=== PATIENT | male | born 1950 | race Caucasian/White ===

== ENCOUNTER → 2019-11-06 | Outpatient (CLI) | payer MEDICARE, BC ==
[~2019-11-06] MED LIST: ASPIRIN EC81 MG PO; ATORVASTATIN CA20 MG PO; BACLOFEN10 MG PO; CALCIUM 600 +1 EAC2; CITALOPRAM HBR20 MG PO; IOPAMIDOL 370 MG/ML 200 ML INFUS..BTL INJ ONE; MELATONIN3 MG PO; PANTOPRAZOLE SO40 MG PO; PLAVIX75 MG PO; SENNA LAXATIVE1 EACH; SODIUM CHLORIDE 0.9% 100 ML ONE; ULTRAM 50MG50 MG PO; VITAMIN D250000 UNIT
[2019-11-06 14:02] LABS: BLOOD UREA NITROGEN 24 mg/dL (7-26); BUN/CREATININE RATIO 23 (6-25); CREATININE, SERUM 1.05 mg/dL (0.72-1.25); EST GLOMERULAR FILTRATION RATE > 60 ML/MIN (60-)
--- NOTE | 2019-11-07 08:48 | Diagnostic Imaging Report ---
Abdomen and Pelvis CTA WITH IV CONTRAST. INDICATION: Abdominal aortic aneurysm COMPARISON: CTA abdomen pelvis of 06/20/2018 TECHNIQUE: Abdomen and pelvis were scanned utilizing a multidetector helical scanner from the lung base to the pubic symphysis without administration of IV contrast. Coronal and sagittal reformations were obtained. 3D post-processing of the images was performed, and the post-processed images were used in interpretation. CTA protocol was performed. IV CONTRAST: 100mL of Isovue 370 ORAL CONTRAST: Water RADIATION DOSE: Total DLP: 696 mGy*cm FINDINGS: VESSELS: There are moderate calcified and noncalcified atherosclerotic plaques in the aorta and its major branches. There is no evidence of a flap within the aorta to suggest a dissection. Again seen is the infrarenal abdominal aortic aneurysm which measures up to 4.2 x 4.1 cm at its widest point, essentially unchanged from the prior CTA of 06/20/2018. There is now slightly less eccentric mural thrombus compared to the prior study. 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 The external iliac arteries and common femoral arteries demonstrate mild atherosclerotic calcifications but are widely patent. The celiac artery, superior mesenteric artery, and inferior mesenteric artery are patent. There is a single right renal artery and a single left renal artery, both of which are patent. NON-VASCULAR: LOWER THORAX: 5 mm left lower lobe pulmonary nodule is stable dating back to 10/17/2016. No focal lung base consolidation. 7 mm unchanged left lower lobe calcified granulomas. HEPATOBILIARY: No focal liver lesion. No biliary ductal dilation. Unremarkable gallbladder. SPLEEN: Numerous subcentimeter calcified granulomas throughout the spleen. PANCREAS: No focal masses or ductal dilatation. ADRENALS: No adrenal nodules. KIDNEYS/URETERS: No hydronephrosis, stones, or solid mass lesions. PELVIC ORGANS/BLADDER: Radiopaque fiducials in the prostate. PERITONEUM / RETROPERITONEUM: No free air or fluid. LYMPH NODES: No lymphadenopathy. GI TRACT: Diverticulosis without CT evidence of diverticulitis. No abnormal bowel thickening. No bowel obstruction. Normal appendix. BONES AND SOFT TISSUES: No acute osseous injury. No suspicious lytic or blastic lesions. Moderate degenerative changes of the visualized spine. Grade 1 retrolisthesis at L2-3. IMPRESSION: Infrarenal abdominal aortic aneurysm measures 4.2 x 4.1 cm, stable dating back to 10/17/2016. Signed by: Loy Kenyon MD on 11/07/2019 8:45 AM
== END ==
LOC: CT 12:59
PROVIDERS: ATTEND Internal Medicine Interventional Cardiology
DX: I71.4 Abdominal aortic aneurysm, without rupture (principal)
CPT/HCPCS: 36415; 74174; 82565; 84520; J7050; Q9967

== ENCOUNTER → 2020-03-03 | Day surgery (SDC) | payer MEDICARE, BC ==
[2020-02-27 11:21] LABS: BASOPHILS % 0.7 % (0.0-1.0); EOSINOPHILS # (AUTO) 0.3 (0.0-0.4); EOSINOPHILS % 5.1 % (0.0-6.0); HEMATOCRIT 37.1 % (38.2-49.6); HEMOGLOBIN 12.1 g/dL (14.0-18.0); LYMPHOCYTES # (AUTO) 1.3 (1.0-3.2); LYMPHOCYTES % 22.3 % (18.0-39.1); MEAN CORPUSCULAR HEMOGLOBIN 30.5 pg (28-32); MEAN CORPUSCULAR HGB CONC 32.6 g/dL (31-35); MEAN CORPUSCULAR VOLUME 93.5 fL (81-99); MONOCYTES # (AUTO) 0.9 (0.2-0.8); MONOCYTES % 15.3 % (4.4-11.3); NEUTROPHILS # (AUTO) 3.2 (2.1-6.9); NEUTROPHILS % 56.4 % (38.7-80.0); PLATELET COUNT 270 x10e3/uL (140-360); RED BLOOD COUNT 3.97 x10e6/uL (4.3-5.7); RED CELL DISTRIBUTION WIDTH 13.4 % (11.7-14.4)
[2020-02-27 11:38] LABS: ALANINE AMINOTRANSFERASE 15 IU/L (0-55); ALBUMIN 4.1 g/dL (3.5-5.0); ALBUMIN/GLOBULIN RATIO 1.4 (0.8-2.0); ALKALINE PHOSPHATASE 76 IU/L (40-150); ANION GAP 11.7 mmol/L (8-16); BLOOD UREA NITROGEN 18 mg/dL (7-26); BUN/CREATININE RATIO 18 (6-25); CALCIUM 9.3 mg/dL (8.4-10.2); CARBON DIOXIDE 26 mmol/L (22-29); CHLORIDE 107 mmol/L (98-107); CREATININE, SERUM 1.02 mg/dL (0.72-1.25); EST GLOMERULAR FILTRATION RATE > 60 ML/MIN (60-); GLUCOSE 95 mg/dL (74-118); POTASSIUM 4.7 mmol/L (3.5-5.1); SODIUM 140 mmol/L (136-145)
--- NOTE | 2020-03-02 12:42 | NUR ---
attempted to contact pt for pre-admit interview @ [phone]. no answer and mailbox was reported as full.
[2020-03-03] VITALS (10 sets, daily range): BP systolic 126–151; BP diastolic 58–99
[~2020-03-03] MED LIST changes: +ALPRAZOLAM 0.5 MG TAB ONE; +CALCIUM PO; +DIPHENHYDRAMINE HCL 25 MG CAP ONE; +FENTANYL CITRATE/PF 100MCG/2 ML INJ ONE; +HEPARIN SOD/SOD CHLORIDE 2,000 ML ONE; +IOPAMIDOL 300MG/ML 100 ML INFUS..BTL IV ONE; -IOPAMIDOL 370 MG/ML 200 ML INFUS..BTL INJ ONE; +LIDOCAINE HCL 2% LOCAL 20 ML VIAL ONE; +METOPROLOL SUCC25 MG PO; +MIDAZOLAM HCL 2 MG/2 ML VIAL ONE; -SENNA LAXATIVE1 EACH; +SENNA LAXATIVE1 EACH PO; -SODIUM CHLORIDE 0.9% 100 ML ONE; +SODIUM CHLORIDE 0.9% 1000ML 1,000 ML ONE; +TIZANIDINE HCL4 MG PO; +TYLENOL ARTHRITIS PO; +WARFARIN SODIU2.5 MG PO; +vitamin d3 PO
--- NOTE | 2020-03-03 15:30 | NUR ---
bedside report received from Leo Montalvo RN. Alert oriented and appropriate, PERRLA, respirations even and unlabored to room air. Pulses x4 extremities equal and strong. Left groin dressing presents clean and dry w/o s/s of hematoma. Skin warm and dry integrity appears intact. IV 20g to left forearm presents healthy w/o s/s of infiltration or complaint. Abdomen soft and supple. pt offered toileting, denies need to urinate or defecate. Personal affects with patient. Family at bedside available. Pt understanding of POC. Bedside telemetry/monitoring active. Currently w/o complaint need. Discomfort to lower back being managed with right leg bending. Call light within reach, bed low and locked, side rails up x2. pt using provided/ personal mask for COVID-19 mitigation. -cgf
--- NOTE | 2020-03-03 16:00 | NUR ---
left groin dressing remains CDI. No gross abnormalities with inguinal assess. pt sat up 30o for back relief and nutritional meal provided. pt w/ + affect and VS remain WNL trend for pt. remains at bedside. no gross changes in overall assess. DC teaching started.
--- NOTE | 2020-03-03 17:05 | NUR ---
Pt meets discharge criteria. VS wnl, alert and oriented. Pt and Family Understands discharge instruction. Overall general assess w/o gross outliers. Skin warm, dry, and intact. left femoral dressing soft w/o s/s of hematoma. + neurovascular function of left leg present. IV removed and appears distal tip is intact. Pt maintains mask on for COVID 19 precautions being taken by wheel chair to awaiting car. Transfers w/o gross distress with discharge paperwork in hand.-cgf
--- NOTE | 2020-03-04 07:09 | Operative Report ---
DATE OF PROCEDURE: 03/03/2020 SURGEON: Kimani Andrea MD INDICATIONS: Peripheral arterial disease, claudication in the right lower extremity. PROCEDURES PERFORMED: 1. Abdominal aorta catheter placement with abdominal aortogram. 2. Third-order catheter placement from the left femoral artery to right superficial femoral artery. 3. Bilateral lower extremity angiograms. 4. Deployment of left groin Perclose closure device. 5. Conscious sedation, 35 minutes. COMPLICATIONS: None. RECOMMENDATIONS: Staged intervention from the right pedal artery. DESCRIPTION OF PROCEDURE: Access was obtained in the left femoral artery. A 6-[place] sheath was placed. Abdominal aortogram demonstrated large abdominal aortic aneurysm. The catheter was then advanced to the right femoral artery, in-stent restenosis in the mid right femoral artery had 50%, distal to the stent 90%, three-vessel runoff. Left femoral artery 50% stenosis. Left groin repaired using Perclose. The patient referred for tibial access intervention due to presence of large abdominal aortic. DICTATION ENDS HERE Kimani Andrea MD [facility] /[id number]
== END | disposition home or self-care (01) ==
LOC: CATH LAB 09:03
PROVIDERS: ATTEND Internal Medicine Interventional Cardiology
DX: I70.211 Atherosclerosis of native arteries of extremities with intermittent claudication, right leg (principal); Z95.820 Peripheral vascular angioplasty status with implants and grafts; I25.10 Atherosclerotic heart disease of native coronary artery without angina pectoris; I48.0 Paroxysmal atrial fibrillation; I51.9 Heart disease, unspecified; I63.9 Cerebral infarction, unspecified; I71.4 Abdominal aortic aneurysm, without rupture; Z01.812 Encounter for preprocedural laboratory examination; Z11.59 Encounter for screening for other viral diseases; Z79.82 Long term (current) use of aspirin
CPT/HCPCS: 36247; 36415; 75625; 75710; 80053; 85025; J2001; J2250; J3010; J7030; Q9967; U0002; 75716; 99152; C1760; C1769

== ENCOUNTER → 2020-03-26 | Day surgery (SDC) | payer MEDICARE, BC ==
[2020-03-23 11:28] LABS: BASOPHILS % 0.7 % (0.0-1.0); EOSINOPHILS # (AUTO) 0.3 (0.0-0.4); EOSINOPHILS % 4.9 % (0.0-6.0); HEMATOCRIT 38.2 % (38.2-49.6); HEMOGLOBIN 12.6 g/dL (14.0-18.0); LYMPHOCYTES # (AUTO) 1.3 (1.0-3.2); LYMPHOCYTES % 23.3 % (18.0-39.1); MEAN CORPUSCULAR HEMOGLOBIN 30.7 pg (28-32); MEAN CORPUSCULAR VOLUME 92.9 fL (81-99); MONOCYTES # (AUTO) 0.8 (0.2-0.8); MONOCYTES % 13.2 % (4.4-11.3); NEUTROPHILS # (AUTO) 3.3 (2.1-6.9); NEUTROPHILS % 57.5 % (38.7-80.0); PLATELET COUNT 306 x10e3/uL (140-360); RED BLOOD COUNT 4.11 x10e6/uL (4.3-5.7); RED CELL DISTRIBUTION WIDTH 13.2 % (11.7-14.4)
[2020-03-23 11:50] LABS: ALANINE AMINOTRANSFERASE 14 IU/L (0-55); ALBUMIN/GLOBULIN RATIO 1.3 (0.8-2.0); ALKALINE PHOSPHATASE 81 IU/L (40-150); ANION GAP 11.2 mmol/L (8-16); BLOOD UREA NITROGEN 12 mg/dL (7-26); BUN/CREATININE RATIO 13 (6-25); CALCIUM 9.6 mg/dL (8.4-10.2); CARBON DIOXIDE 26 mmol/L (22-29); CHLORIDE 109 mmol/L (98-107); CREATININE, SERUM 0.96 mg/dL (0.72-1.25); EST GLOMERULAR FILTRATION RATE > 60 ML/MIN (60-); GLUCOSE 104 mg/dL (74-118); POTASSIUM 4.2 mmol/L (3.5-5.1); SODIUM 142 mmol/L (136-145)
[2020-03-26] VITALS (7 sets, daily range): BP systolic 134–156; BP diastolic 59–134
[~2020-03-26] MED LIST changes: +ASPIRIN 325 MG TAB ONE; +BIVALRIUDIN 250 MG/VIAL VIAL IV ONE; +PRASUGREL 10 MG TAB ONE; +SODIUM CHLORIDE 0.9% 50ML 0 ML ONE
== END | disposition home or self-care (01) ==
LOC: CATH LAB 10:10
PROVIDERS: ATTEND Internal Medicine Interventional Cardiology
DX: I70.211 Atherosclerosis of native arteries of extremities with intermittent claudication, right leg (principal); I25.10 Atherosclerotic heart disease of native coronary artery without angina pectoris; I71.4 Abdominal aortic aneurysm, without rupture; I50.20 Unspecified systolic (congestive) heart failure; Z72.0 Tobacco use; Z01.812 Encounter for preprocedural laboratory examination; Z20.828 Contact with and (suspected) exposure to other viral communicable diseases; Z79.82 Long term (current) use of aspirin; Z79.01 Long term (current) use of anticoagulants; Z86.73 Personal history of transient ischemic attack (TIA), and cerebral infarction without residual deficits; Z95.820 Peripheral vascular angioplasty status with implants and grafts
CPT/HCPCS: 36415; 37225; 75710; 76937; 80053; 85025; C1714; C1769 ×2; J2001; J2250; J3010; J7030; Q9967; U0002; 99152; 99153; J0583

== ENCOUNTER → 2022-06-27 | Outpatient (CLI) | payer MEDICARE, BC ==
[~2022-06-27] MED LIST changes: -ALPRAZOLAM 0.5 MG TAB ONE; -ASPIRIN 325 MG TAB ONE; -BIVALRIUDIN 250 MG/VIAL VIAL IV ONE; -DIPHENHYDRAMINE HCL 25 MG CAP ONE; -FENTANYL CITRATE/PF 100MCG/2 ML INJ ONE; -HEPARIN SOD/SOD CHLORIDE 2,000 ML ONE; -IOPAMIDOL 300MG/ML 100 ML INFUS..BTL IV ONE; -LIDOCAINE HCL 2% LOCAL 20 ML VIAL ONE; -MIDAZOLAM HCL 2 MG/2 ML VIAL ONE; -PRASUGREL 10 MG TAB ONE; -SODIUM CHLORIDE 0.9% 1000ML 1,000 ML ONE; -SODIUM CHLORIDE 0.9% 50ML 0 ML ONE
== END ==
LOC: CT 15:47
PROVIDERS: ATTEND Family Medicine
DX: J18.9 Pneumonia, unspecified organism (principal); R91.1 Solitary pulmonary nodule
CPT/HCPCS: 71250

== ENCOUNTER 2023-02-28 12:59 | Observation (INO) | payer MEDICARE, BC ==
[2023-02-24 11:01] LABS: BASOPHILS % 0.8 % (0.0-1.0); EOSINOPHILS # (AUTO) 0.2 (0.0-0.4); EOSINOPHILS % 4.4 % (0.0-6.0); HEMATOCRIT 32.8 % (38.2-49.6); HEMOGLOBIN 10.8 g/dL (14.0-18.0); LYMPHOCYTES # (AUTO) 1.2 (1.0-3.2); LYMPHOCYTES % 25.9 % (18.0-39.1); MEAN CORPUSCULAR HEMOGLOBIN 30.6 pg (28-32); MEAN CORPUSCULAR HGB CONC 32.9 g/dL (31-35); MEAN CORPUSCULAR VOLUME 92.9 fL (81-99); MONOCYTES # (AUTO) 0.7 (0.2-0.8); MONOCYTES % 14.3 % (4.4-11.3); NEUTROPHILS # (AUTO) 2.6 (2.1-6.9); NEUTROPHILS % 54.4 % (38.7-80.0); PLATELET COUNT 296 x10e3/uL (140-360); RED BLOOD COUNT 3.53 x10e6/uL (4.3-5.7); RED CELL DISTRIBUTION WIDTH 13.5 % (11.7-14.4); WHITE BLOOD COUNT 4.75 x10e3/uL (4.8-10.8)
[2023-02-24 11:25] LABS: ALBUMIN 3.7 g/dL (3.5-5.0); ALBUMIN/GLOBULIN RATIO 1.2 (0.8-2.0); ANION GAP 13.3 mmol/L (8-16); CALCIUM 9.3 mg/dL (8.4-10.2); CHOL/HDL RATIO 2.7 (3.9-4.7); CREATININE, SERUM 1.05 mg/dL (0.72-1.25); POTASSIUM 4.3 mmol/L (3.5-5.1)
[2023-02-28] VITALS (19 sets, daily range): BP systolic 121–154; BP diastolic 52–84; PULSE 44–67; RESP 11–20; TEMP 97.8–97.9; O2SAT 93–100
[~2023-02-28] VITALS: Ht 182.9 cm; Wt 72.6 kg
[~2023-02-28 12:59] MED LIST changes: +CYCLOBENZAPRINE5 MG PO
[2023-02-28] MEDS ORDERED: ALPRAZOLAM 0.5 MG TAB ONE (13:33)
[2023-02-28] MEDS ORDERED: DIPHENHYDRAMINE HCL 25 MG CAP ONE (13:33)
[2023-02-28] MEDS ORDERED: NITROGLYCERIN/D5W 200 MCG/ML 250 ML ONE (14:58)
[2023-02-28] MEDS ORDERED: LIDOCAINE HCL 2% LOCAL 20 ML VIAL ONE (14:58)
[2023-02-28] MEDS ORDERED: SODIUM CHLORIDE 0.9% 1000ML 1,000 ML ONE (14:58)
[2023-02-28] MEDS ORDERED: HEPARIN SOD/SOD CHLORIDE 2,000 ML ONE (14:58)
[2023-02-28] MEDS ORDERED: HEPARIN SOD (PORCINE) 1000 UNIT/ML 30ML ONE (14:58)
[2023-02-28] MEDS ORDERED: IOPAMIDOL 370 MG/ML 100 ML INFUS..BTL INJ ONE (14:58)
[2023-02-28] MEDS ORDERED: VERAPAMIL HCL 2.5 MG/ML 2 ML VIAL ONE (14:58)
[2023-02-28] MEDS ORDERED: FENTANYL CITRATE/PF 100MCG/2 ML INJ ONE (15:11)
[2023-02-28] MEDS ORDERED: MIDAZOLAM HCL 2 MG/2 ML VIAL ONE (15:11)
[2023-02-28] MEDS ORDERED: BIVALRIUDIN 250 MG/VIAL VIAL IV ONE (15:29)
[2023-02-28] MEDS ORDERED: PRASUGREL 10 MG TAB ONE (15:33)
[2023-02-28] MEDS ORDERED: Morphine 2mg Syringe 2 MG/ML SYR IV PRN (15:45)
[2023-02-28] MEDS ORDERED: SENNOSIDES 8.6 MG TAB PO PRN (15:45)
[2023-02-28] MEDS ORDERED: ONDANSETRON HCL INJ 2MG/ML 2ML 2 MG/ML VIAL IV PRN (15:45)
[2023-02-28] MEDS ORDERED: MELATONIN 5 MG TABLET PO SCH (21:00)
[2023-02-28] MEDS ORDERED: ATORVASTATIN 40 MG TAB PO SCH (21:00)
[2023-02-28] MEDS: SODIUM CHLORIDE 0.9% 1000ML 1,000 ML IV SCH (23:01)
[2023-03-01] VITALS: BP 116/72; PULSE 57; RESP 19; TEMP 97.7; O2SAT 93
[2023-03-01] MEDS: SODIUM CHLORIDE 0.9% 1000ML 1,000 ML IV SCH (01:45)
[2023-03-01] MEDS: HYDROCODONE/APAP 5MG-325MG TAB PO PRN ×2 (03:22→09:01)
[2023-03-01 04:00] VITALS: BP 131/56; PULSE 77; RESP 20; TEMP 97.9; O2SAT 98
[2023-03-01 08:00] VITALS: BP 129/78; PULSE 59; RESP 21; TEMP 97.7; O2SAT 98
[2023-03-01] MEDS ORDERED: ONDANSETRON HCL 4 MG ORAL DISINTEGRATING TAB PO PRN (08:30)
[2023-03-01 09:00] VITALS: BP 129/78; PULSE 59; RESP 21; TEMP 97.7; O2SAT 98
[2023-03-01] MEDS ORDERED: METOPROLOL SUCCINATE 50 MG TAB XL PO SCH (09:00)
[2023-03-01] MEDS ORDERED: CLOPIDOGREL BISULFATE 75 MG TAB PO SCH (09:00)
[2023-03-01] MEDS ORDERED: CITALOPRAM HYDROBROMIDE 20 MG TAB PO SCH (09:00)
[2023-03-01] MEDS ORDERED: PNEUMOCOCCAL VACCINE POLYVALENT 23 MCG/0.5 ML VIAL IM SCH (12:00)
[2023-03-01] MEDS ORDERED: INFLUENZA VIRUS VAC SPLIT INJ 0.5 ML SYR IM SCH (12:00)
[2023-03-01] MEDS ORDERED: WARFARIN SOD 5 MG TAB PO SCH (17:00)
== END 2023-03-01 10:41 | disposition home or self-care (01) ==
LOC: CATH LAB 12:59 → MED/SURG 15:40 → INTOOBSV 15:40
PROVIDERS: ADMIT Internal Medicine Interventional Cardiology; ATTEND Internal Medicine Interventional Cardiology
DX: I25.118 Atherosclerotic heart disease of native coronary artery with other forms of angina pectoris (principal); I48.0 Paroxysmal atrial fibrillation; Z79.01 Long term (current) use of anticoagulants; I11.0 Hypertensive heart disease with heart failure; I50.22 Chronic systolic (congestive) heart failure; I73.9 Peripheral vascular disease, unspecified; I71.40 Abdominal aortic aneurysm, without rupture, unspecified; Z86.73 Personal history of transient ischemic attack (TIA), and cerebral infarction without residual deficits; Z79.899 Other long term (current) drug therapy; Z01.812 Encounter for preprocedural laboratory examination
CPT/HCPCS: 93458; C9600; 36415; 80053; 80061; 85025; 92928; 99152; 99153; C1887; C1894; G0378; J0583; J1644; J2001; J2250; J7030; Q9967

== ENCOUNTER → 2024-02-09 | Outpatient (REF) | payer MEDICARE, BC | LOC: RAD 13:06 | PROVIDERS: ATTEND Internal Medicine Medical Oncology | DX: R91.1 Solitary pulmonary nodule (principal) | CPT/HCPCS: 71046 ==

== ENCOUNTER 2024-06-17 02:49 | Emergency (ER) | payer MEDICARE, BC ==
[~2024-06-17] VITALS: Ht 365.8 cm; Wt 72.6 kg
[2024-06-17 02:54] VITALS: TEMP 98
[2024-06-17 03:20] VITALS: PULSE 65; RESP 16; O2SAT 100
[2024-06-17] MEDS: ALBUTEROL/IPRATROPIUM 3 ML NEB NEB STA (03:20)
[2024-06-17 03:26] LABS: BASOPHILS % 0.4 % (0.0-1.0); EOSINOPHILS # (AUTO) 0.3 (0.0-0.4); EOSINOPHILS % 4.3 % (0.0-6.0); HEMATOCRIT 32.9 % (38.2-49.6); LYMPHOCYTES # (AUTO) 1.7 (1.0-3.2); LYMPHOCYTES % 23.8 % (18.0-39.1); MEAN CORPUSCULAR HEMOGLOBIN 30.4 pg (28-32); MEAN CORPUSCULAR HGB CONC 30.4 g/dL (31-35); MONOCYTES % 13.4 % (4.4-11.3); NEUTROPHILS # (AUTO) 4.2 (2.1-6.9); NEUTROPHILS % 57.7 % (38.7-80.0); PLATELET COUNT 473 x10e3/uL (140-360); RED BLOOD COUNT 3.29 x10e6/uL (4.3-5.7); RED CELL DISTRIBUTION WIDTH 18.1 % (11.7-14.4); WHITE BLOOD COUNT 7.19 x10e3/uL (4.8-10.8)
[2024-06-17 03:42] LABS: ALBUMIN 3.9 g/dL (3.5-5.0); ALBUMIN/GLOBULIN RATIO 1.1 (0.8-2.0); ANION GAP 15.3 mmol/L (8-16); BILIRUBIN,TOTAL 0.3 mg/dL (0.2-1.2); CALCIUM 9.4 mg/dL (8.4-10.2); CREATININE, SERUM 1.35 mg/dL (0.72-1.25); POTASSIUM 4.3 mmol/L (3.5-5.1); TOTAL PROTEIN 7.3 g/dL (6.5-8.1)
[2024-06-17 03:47] LABS: TROPONIN I 0.004 ng/mL (0-0.300)
[2024-06-17 03:49] LABS: INFLUENZA A AG NEGATIVE (NEGATIVE); INFLUENZA B AG NEGATIVE (NEGATIVE)
[2024-06-17 03:50] LABS: CORONAVIRUS COVID-19 AG NEGATIVE (NEGATIVE)
[2024-06-17 04:15] VITALS: PULSE 69; RESP 18
[2024-06-17] MEDS ORDERED: PREDNISONE20 MG PO (04:22)
[2024-06-17] MEDS ORDERED: VENTOLIN HFA18 GM INH (04:22)
[2024-06-17] MEDS ORDERED: AZITHROMYCIN250 MG PO (04:23)
[2024-06-17 04:36] VITALS: BP 125/79; PULSE 65; RESP 16; O2SAT 98
== END 2024-06-17 04:30 | disposition home or self-care (01) ==
LOC: ER 02:56
DX: R05.9 Cough, unspecified (principal); J06.9 Acute upper respiratory infection, unspecified; M79.604 Pain in right leg; Z11.52 Encounter for screening for COVID-19
CPT/HCPCS: 36415; 71045; 80053; 82550; 83690; 83880; 84484; 85025; 93005; 94640; 94799; 99284

== ENCOUNTER 2024-11-29 09:07 | Inpatient (IN) | payer MEDICARE, BC ==
[~2024-11-29] VITALS: Ht 182.9 cm; Wt 70.3 kg
[~2024-11-29 09:07] MED LIST changes: +AZITHROMYCIN250 MG PO; +PREDNISONE20 MG PO; +VENTOLIN HFA18 GM INH
[2024-11-29 10:17] LABS: BASOPHILS % 0.2 % (0.0-1.0); EOSINOPHILS % 0.2 % (0.0-6.0); LYMPHOCYTES % 15.1 % (18.0-39.1); MONOCYTES % 5.8 % (4.4-11.3); NEUTROPHILS % 78.1 % (38.7-80.0); RED CELL DISTRIBUTION WIDTH 15.2 % (11.7-14.4)
[2024-11-29 10:22] LABS: INR 4.48
[2024-11-29 10:35] LABS: EST GLOMERULAR FILTRATION RATE 51.0 ML/MIN (>=60)
[2024-11-29] MEDS: ONDANSETRON HCL INJ 2MG/ML 2ML 2 MG/ML VIAL IV PRN (10:47)
[2024-11-29 10:56] LABS: % IRON SATURATION 5.0 % (15-50)
[2024-11-29] MEDS ORDERED: SODIUM CHLORIDE 0.9% 250ML 250 ML ONE ×2 (11:51→14:02)
[2024-11-29 15:20] VITALS: PULSE 85; RESP 23; TEMP 97.7
[2024-11-29 17:02] VITALS: BP 122/60; PULSE 85; RESP 23; TEMP 97.7; O2SAT 97
[2024-11-29 20:00] VITALS: BP 130/63; PULSE 71; RESP 20; TEMP 97.9; O2SAT 97
[2024-11-29] MEDS ORDERED: POLYETHYLENE GLYCOL 3350 17 GM PACK PO PRN (20:00)
[2024-11-29] MEDS ORDERED: BISACODYL 10 MG SUPP PR PRN (20:00)
[2024-11-29] MEDS ORDERED: HYDROCODON-ACE1 EAC9 PO (22:21)
[2024-11-29] MEDS ORDERED: METHOCARBAMOL500 MG PO (22:21)
[2024-11-29] MEDS ORDERED: LOPRESSOR25 MG PO (22:21)
[2024-11-29] MEDS ORDERED: ATORVASTATIN CA80 MG PO (22:21)
[2024-11-29] MEDS ORDERED: LISINOPRIL2.5 MG PO (22:21)
[2024-11-30] VITALS: BP 129/52; PULSE 73; RESP 16; TEMP 98.4; O2SAT 97
[2024-11-30] MEDS: HYDROCODONE/APAP 10MG-325MG TAB PO ONE (03:47)
[2024-11-30] MEDS: METHOCARBAMOL 500 MG TAB PO ONE (03:47)
[2024-11-30 05:05] VITALS: BP 105/46; PULSE 66; RESP 18; TEMP 98.8; O2SAT 97
[2024-11-30] MEDS: HYDROCODONE/APAP 10MG-325MG TAB PO SCH (06:00)
[2024-11-30 06:49] LABS: BASOPHILS % 0.3 % (0.0-1.0); EOSINOPHILS % 0.8 % (0.0-6.0); LYMPHOCYTES % 13.0 % (18.0-39.1); MONOCYTES % 11.6 % (4.4-11.3); NEUTROPHILS % 73.9 % (38.7-80.0); RED CELL DISTRIBUTION WIDTH 14.7 % (11.7-14.4)
[2024-11-30 07:41] LABS: INR 2.28
[2024-11-30 07:52] LABS: EST GLOMERULAR FILTRATION RATE 70.0 ML/MIN (>=60)
[2024-11-30 08:46] VITALS: BP 116/59; PULSE 68; RESP 18; TEMP 98.6; O2SAT 95
[2024-11-30] MEDS: METOPROLOL TARTRATE 25 MG TAB PO SCH (09:03)
[2024-11-30] MEDS: LISINOPRIL 2.5 MG TAB PO SCH (09:03)
[2024-11-30] MEDS: IRON SUCROSE 100 MG in SODIUM CHLORIDE 0.9% 100 ML IV SCH (09:04)
[2024-11-30 12:14] VITALS: BP 99/62; PULSE 75; RESP 18; TEMP 97.8; O2SAT 100
[2024-11-30] MEDS: POLYETHYLENE GLYCOL 3350 17 GM PACK PO ONE (13:54)
[2024-11-30 16:01] VITALS: BP 131/76; PULSE 67; RESP 17; TEMP 98.1; O2SAT 99
[2024-11-30] MEDS: WARFARIN SOD 1 MG TAB PO SCH (17:00)
[2024-11-30 20:00] VITALS: BP 118/60; PULSE 60; RESP 18; TEMP 98.2; O2SAT 98
[2024-11-30] MEDS: METHOCARBAMOL 500 MG TAB PO SCH (21:49)
[2024-11-30] MEDS: ATORVASTATIN 20 MG TAB PO SCH (21:49)
[2024-11-30] MEDS: MELATONIN 3 MG TAB PO SCH (21:52)
[2024-12-01] VITALS (8 sets, daily range): BP systolic 101–134; BP diastolic 46–71; PULSE 57–90; RESP 17–21; TEMP 97.4–98.1; O2SAT 96–97
[2024-12-01 05:17] LABS: BASOPHILS % 0.3 % (0.0-1.0); EOSINOPHILS % 1.9 % (0.0-6.0); LYMPHOCYTES % 10.1 % (18.0-39.1); MONOCYTES % 12.6 % (4.4-11.3); NEUTROPHILS % 74.3 % (38.7-80.0); RED CELL DISTRIBUTION WIDTH 14.8 % (11.7-14.4)
[2024-12-01 05:37] LABS: INR 1.81
[2024-12-01 05:44] LABS: EST GLOMERULAR FILTRATION RATE 82.0 ML/MIN (>=60)
[2024-12-01] MEDS: ACETAMINOPHEN 325 MG TAB PO PRN (10:50)
[2024-12-01] MEDS: BISACODYL 5 MG TAB EC PO ONE ×2 (21:25→22:42)
[2024-12-01] MEDS: CITRATE OF MAGNESIA 300ML BOTTLE PO ONE (22:43)
[2024-12-01] MEDS ORDERED: IRON SUCROSE 0 ML IV ONE (23:27)
[2024-12-02] VITALS (8 sets, daily range): BP systolic 114–137; BP diastolic 56–76; PULSE 62–80; RESP 17–20; TEMP 97.4–98.2; O2SAT 95–99
[2024-12-02] MEDS: CITRATE OF MAGNESIA 300ML BOTTLE PO ONE ×2 (05:09→13:00)
[2024-12-02 06:10] LABS: BASOPHILS % 0.3 % (0.0-1.0); EOSINOPHILS % 2.0 % (0.0-6.0); LYMPHOCYTES % 9.1 % (18.0-39.1); MONOCYTES % 11.2 % (4.4-11.3); NEUTROPHILS % 76.3 % (38.7-80.0); RED CELL DISTRIBUTION WIDTH 14.7 % (11.7-14.4)
[2024-12-02 06:32] LABS: INR 1.09
[2024-12-02 06:50] LABS: EST GLOMERULAR FILTRATION RATE 80.0 ML/MIN (>=60)
[2024-12-02] MEDS: SODIUM CHLORIDE 0.9% 250ML 250 ML ONE (13:46)
[2024-12-02] MEDS: BISACODYL 5 MG TAB EC PO ONE ×2 (15:17→21:35)
[2024-12-03] VITALS (7 sets, daily range): BP systolic 114–142; BP diastolic 49–81; PULSE 57–85; RESP 17–20; TEMP 97.5–98.3; O2SAT 95–100
[2024-12-03 06:15] LABS: BASOPHILS % 0.4 % (0.0-1.0); EOSINOPHILS % 1.6 % (0.0-6.0); LYMPHOCYTES % 12.0 % (18.0-39.1); MONOCYTES % 14.5 % (4.4-11.3); NEUTROPHILS % 70.4 % (38.7-80.0); RED CELL DISTRIBUTION WIDTH 15.6 % (11.7-14.4)
[2024-12-03] MEDS: BISACODYL 5 MG TAB EC PO ONE (06:25)
[2024-12-03 06:32] LABS: INR 0.95
[2024-12-03 06:46] LABS: EST GLOMERULAR FILTRATION RATE 85.0 ML/MIN (>=60)
[2024-12-03] MEDS ORDERED: PROPOFOL IV EMULSION 50 ML IV ONE (16:52)
[2024-12-03] MEDS ORDERED: LIDOCAINE HCL 2% LOCAL INJ 5 ML SDV VIAL INJ ONE (16:52)
[2024-12-03] MEDS ORDERED: PROPOFOL IV EMULSION 10 MG/ML 20 ML VIAL ONE (16:56)
[2024-12-03] MEDS ORDERED: GLUCAGON FOR INJ 1 MG VIAL ONE ×2 (17:14→17:16)
[2024-12-03] MEDS ORDERED: METOCLOPRAMIDE HCL 10 MG/2ML VIAL ONE (17:18)
[2024-12-03] MEDS ORDERED: ONDANSETRON HCL INJ 2MG/ML 2ML 2 MG/ML VIAL ONE (17:18)
[2024-12-03] MEDS ORDERED: EPHEDRINE SULFATE INJ 50 MG/ML VIAL ONE (17:31)
[2024-12-04] VITALS (11 sets, daily range): BP systolic 89–131; BP diastolic 32–71; PULSE 54–97; RESP 17–21; TEMP 97.5–98.4; O2SAT 93–99
[2024-12-04 06:06] LABS: BASOPHILS % 0.4 % (0.0-1.0); EOSINOPHILS % 0.8 % (0.0-6.0); LYMPHOCYTES % 7.8 % (18.0-39.1); MONOCYTES % 14.3 % (4.4-11.3); NEUTROPHILS % 75.9 % (38.7-80.0); RED CELL DISTRIBUTION WIDTH 15.7 % (11.7-14.4)
[2024-12-04 06:29] LABS: INR 0.96
[2024-12-04 06:42] LABS: EST GLOMERULAR FILTRATION RATE 66.0 ML/MIN (>=60)
[2024-12-04] MEDS ORDERED: IOPAMIDOL 370 MG/ML 100 ML INFUS..BTL INJ ONE (12:36)
[2024-12-04] MEDS: SODIUM CHLORIDE 0.9% 1000ML 1,000 ML IV SCH (17:26)
[2024-12-05] VITALS (8 sets, daily range): BP systolic 103–137; BP diastolic 45–84; PULSE 56–89; RESP 18–19; TEMP 97.2–99.4; O2SAT 92–98
[2024-12-05 05:40] LABS: ALPHA FETO-PROTEIN 3.2 ng/mL (0.0-8.4)
[2024-12-05 05:46] LABS: BASOPHILS % 0.5 % (0.0-1.0); EOSINOPHILS % 3.4 % (0.0-6.0); LYMPHOCYTES % 12.9 % (18.0-39.1); MONOCYTES % 16.1 % (4.4-11.3); NEUTROPHILS % 66.3 % (38.7-80.0); RED CELL DISTRIBUTION WIDTH 15.8 % (11.7-14.4)
[2024-12-05 06:20] LABS: EST GLOMERULAR FILTRATION RATE 74.0 ML/MIN (>=60)
[2024-12-05] MEDS: MAGNESIUM HYDROXIDE 30 ML UDC PO ONE (13:37)
[2024-12-05] MEDS: NEOMYCIN SULFATE 500 MG TAB PO SCH (21:07)
[2024-12-05] MEDS: ERYTHROMYCIN 500 MG TAB PO SCH (21:11)
[2024-12-06] VITALS (10 sets, daily range): BP systolic 95–136; BP diastolic 46–74; PULSE 65–97; RESP 14–19; TEMP 97.5–98.5; O2SAT 92–98
[2024-12-06 05:37] LABS: BASOPHILS % 0.5 % (0.0-1.0); EOSINOPHILS % 2.1 % (0.0-6.0); LYMPHOCYTES % 8.0 % (18.0-39.1); MONOCYTES % 11.3 % (4.4-11.3); NEUTROPHILS % 77.3 % (38.7-80.0); RED CELL DISTRIBUTION WIDTH 16.0 % (11.7-14.4)
[2024-12-06 05:52] LABS: INR 1.09
[2024-12-06 06:08] LABS: EST GLOMERULAR FILTRATION RATE 74.0 ML/MIN (>=60)
[2024-12-06] MEDS ORDERED: ROPIVACAINE/EPI/CLONIDINE/KET 50 ML SYRINGE INJ ONE (12:00)
[2024-12-06] MEDS: HYDROXYZINE HCL 25 MG TAB PO ONE (14:59)
[2024-12-06] MEDS ORDERED: FENTANYL CITRATE/PF 100MCG/2 ML INJ ONE (16:10)
[2024-12-06] MEDS ORDERED: LIDOCAINE HCL 2% LOCAL INJ 5 ML SDV VIAL INJ ONE (16:10)
[2024-12-06] MEDS ORDERED: SUCCINYLCHOLINE CHLORIDE 20 MG/ML 10ML VIAL ONE (16:11)
[2024-12-06] MEDS ORDERED: PROPOFOL IV EMULSION 10 MG/ML 20 ML VIAL ONE (16:11)
[2024-12-06] MEDS ORDERED: ROCURONIUM BROMIDE 1 ML IV ONE ×2 (16:11→18:05)
[2024-12-06] MEDS ORDERED: BUPIVACAINE 0.5%/EPI 30 ML SDV INJ ONE (17:05)
[2024-12-06] MEDS ORDERED: ATROPINE SULFATE 1 MG/ML VIAL ONE (17:14)
[2024-12-06] MEDS ORDERED: ACETAMINOPHEN 1000 MG/100 ML 100 ML IV ONE (17:14)
[2024-12-06] MEDS ORDERED: LABETALOL HCL 20 ML ONE (18:47)
[2024-12-06] MEDS ORDERED: SUGAMMADEX SODIUM 200 MG/2 ML VIAL IV ONE (18:54)
[2024-12-06] MEDS: SODIUM CHLORIDE 0.9% 1000ML 1,000 ML IV SCH (20:42)
[2024-12-06] MEDS: HYDROMORPHONE 1MG/1ML INJ ONE (20:46)
[2024-12-06] MEDS: ACETAMINOPHEN 1000 MG/100 ML IV PRN (20:49)
[2024-12-06] MEDS: SODIUM CHLORIDE 0.9% 250ML IRRIG IR SCH (21:08)
[2024-12-06] MEDS: HYDROMORPHONE 1MG/1ML INJ IV PRN (23:42)
[2024-12-07] VITALS (19 sets, daily range): BP systolic 119–172; BP diastolic 53–79; PULSE 65–85; RESP 10–33; TEMP 97.4–98.4; O2SAT 93–100
[2024-12-07 07:30] LABS: BASOPHILS % 0.2 % (0.0-1.0); EOSINOPHILS % 0.1 % (0.0-6.0); LYMPHOCYTES % 5.7 % (18.0-39.1); MONOCYTES % 9.8 % (4.4-11.3); NEUTROPHILS % 83.7 % (38.7-80.0); RED CELL DISTRIBUTION WIDTH 15.9 % (11.7-14.4)
[2024-12-07 07:54] LABS: EST GLOMERULAR FILTRATION RATE 57.0 ML/MIN (>=60)
[2024-12-07] MEDS: METHOCARBAMOL 100MG/1ML 10ML VIAL IV ONE (10:06)
[2024-12-07] MEDS: ONDANSETRON HCL INJ 2MG/ML 2ML 2 MG/ML VIAL IV PRN (10:41)
[2024-12-07] MEDS: METHOCARBAMOL IV ONE (10:59)
[2024-12-07] MEDS: DEXTROSE 5% IV ONE (10:59)
[2024-12-07] MEDS: BUPIVACAINE LIPOSOME/PF 266 MG/20 ML IJ ONE (19:03)
[2024-12-07] MEDS: DIPHENHYDRAMINE HCL INJ 50 MG/ML VIAL IV PRN (22:23)
[2024-12-07] MEDS: METHOCARBAMOL 100MG/1ML 10ML VIAL IV PRN (22:23)
[2024-12-07] MEDS: ACETAMINOPHEN 1000 MG/100 ML IV PRN (22:37)
[2024-12-08] VITALS (21 sets, daily range): BP systolic 123–166; BP diastolic 44–90; PULSE 55–100; RESP 10–23; TEMP 97.9–100.1; O2SAT 90–100
[2024-12-08 07:30] LABS: BASOPHILS % 0.2 % (0.0-1.0); EOSINOPHILS % 0.6 % (0.0-6.0); LYMPHOCYTES % 6.4 % (18.0-39.1); MONOCYTES % 9.3 % (4.4-11.3); NEUTROPHILS % 83.0 % (38.7-80.0); RED CELL DISTRIBUTION WIDTH 16.2 % (11.7-14.4)
[2024-12-08 07:46] LABS: EST GLOMERULAR FILTRATION RATE 85.0 ML/MIN (>=60)
[2024-12-08] MEDS: METHOCARBAMOL 100MG/1ML 10ML VIAL IV PRN (17:38)
[2024-12-08] MEDS: BISACODYL 10 MG SUPP PR SCH (21:00)
[2024-12-09] VITALS (7 sets, daily range): BP systolic 128–148; BP diastolic 52–68; PULSE 71–81; RESP 17–20; TEMP 97.6–98.6; O2SAT 92–97
[2024-12-09 05:28] LABS: BASOPHILS % 0.4 % (0.0-1.0); EOSINOPHILS % 1.8 % (0.0-6.0); LYMPHOCYTES % 6.9 % (18.0-39.1); MONOCYTES % 10.1 % (4.4-11.3); NEUTROPHILS % 80.5 % (38.7-80.0); RED CELL DISTRIBUTION WIDTH 15.9 % (11.7-14.4)
[2024-12-09 05:49] LABS: EST GLOMERULAR FILTRATION RATE 88.0 ML/MIN (>=60)
[2024-12-09] MEDS: SODIUM FERRIC GLUCONATE COMPLX 125 MG in SODIUM CHLORIDE 0.9% 100 ML IV ONE (12:04)
[2024-12-09] MEDS: DEXTROSE 5%/0.45% SOD CHL 1,000 ML IV SCH (12:04)
[2024-12-09] MEDS: ACETAMINOPHEN 325 MG TAB PO PRN (22:39)
[2024-12-10] VITALS (8 sets, daily range): BP systolic 111–145; BP diastolic 60–89; PULSE 67–145; RESP 16–19; TEMP 97.7–98.8; O2SAT 93–100
[2024-12-10] MEDS: METOPROLOL TARTRATE 25 MG TAB PO ONE (01:08)
[2024-12-10 05:38] LABS: BASOPHILS % 0.6 % (0.0-1.0); EOSINOPHILS % 3.4 % (0.0-6.0); LYMPHOCYTES % 8.8 % (18.0-39.1); MONOCYTES % 11.9 % (4.4-11.3); NEUTROPHILS % 75.0 % (38.7-80.0); RED CELL DISTRIBUTION WIDTH 15.8 % (11.7-14.4)
[2024-12-10 06:31] LABS: EST GLOMERULAR FILTRATION RATE 90.0 ML/MIN (>=60)
[2024-12-11] VITALS (7 sets, daily range): BP systolic 112–135; BP diastolic 52–70; PULSE 57–103; RESP 18–20; TEMP 97.2–98.4; O2SAT 96–100
[2024-12-11] MEDS: HYDROCODONE/APAP 5MG-325MG TAB PO PRN (01:44)
[2024-12-11 05:17] LABS: BASOPHILS % 0.7 % (0.0-1.0); EOSINOPHILS % 4.7 % (0.0-6.0); LYMPHOCYTES % 11.5 % (18.0-39.1); MONOCYTES % 14.3 % (4.4-11.3); NEUTROPHILS % 68.3 % (38.7-80.0); RED CELL DISTRIBUTION WIDTH 15.8 % (11.7-14.4)
[2024-12-11 05:47] LABS: EST GLOMERULAR FILTRATION RATE 92.0 ML/MIN (>=60)
[2024-12-11] MEDS: ENOXAPARIN SOD INJ 60 MG/0.6 ML SYR SC SCH (08:50)
[2024-12-11] MEDS: SODIUM FERRIC GLUCONATE COMPLX 125 MG in SODIUM CHLORIDE 0.9% 100 ML IV ONE (12:11)
[2024-12-12] VITALS (7 sets, daily range): BP systolic 124–137; BP diastolic 54–65; PULSE 36–81; RESP 16–18; TEMP 97.3–100; O2SAT 90–98
[2024-12-12 05:15] LABS: BASOPHILS % 0.6 % (0.0-1.0); EOSINOPHILS % 4.1 % (0.0-6.0); LYMPHOCYTES % 13.3 % (18.0-39.1); MONOCYTES % 14.8 % (4.4-11.3); NEUTROPHILS % 66.6 % (38.7-80.0); RED CELL DISTRIBUTION WIDTH 16.1 % (11.7-14.4)
[2024-12-12 05:45] LABS: EST GLOMERULAR FILTRATION RATE 94.0 ML/MIN (>=60)
[2024-12-12] MEDS: SODIUM FERRIC GLUCONATE COMPLX 125 MG in SODIUM CHLORIDE 0.9% 100 ML IV SCH (11:17)
[2024-12-12] MEDS ORDERED: METHOCARBAMOL 500 MG TAB PO PRN (12:15)
[2024-12-12] MEDS: WARFARIN SOD 3 MG TAB PO SCH (17:01)
[2024-12-12] MEDS ORDERED: METHOCARBAMOL500 MG PO (19:10)
[2024-12-12] MEDS ORDERED: Warfarin Sod PO (19:10)
[2024-12-12] MEDS ORDERED: BENZONATATE200 MG PO (19:10)
[2024-12-12] MEDS ORDERED: ENOXAPARIN60 MG/0.6 SQ (19:10)
== END 2024-12-12 21:00 | disposition home or self-care (01) | DRG 330 ==
LOC: ER 09:17 → ERHOLD 10:28 → MED/SURG2 16:47 → ICU 12-06 20:24 → MED/SURG 12-08 18:41
PROVIDERS: ADMIT Internal Medicine; ATTEND Internal Medicine
PROC: 30233N1 Transfusion of Nonautologous Red Blood Cells into Peripheral Vein, Percutaneous Approach (ICD-10-PCS; principal; 2024-11-29)
PROC: 30233K1 Transfusion of Nonautologous Frozen Plasma into Peripheral Vein, Percutaneous Approach (ICD-10-PCS; 2024-11-29)
PROC: 0DB78ZX Excision of Stomach, Pylorus, Via Natural or Artificial Opening Endoscopic, Diagnostic (ICD-10-PCS; 2024-12-03)
PROC: 0DBK8ZX Excision of Ascending Colon, Via Natural or Artificial Opening Endoscopic, Diagnostic (ICD-10-PCS; 2024-12-03)
PROC: 0DBM8ZZ Excision of Descending Colon, Via Natural or Artificial Opening Endoscopic (ICD-10-PCS; 2024-12-03)
PROC: 0D748ZZ Dilation of Esophagogastric Junction, Via Natural or Artificial Opening Endoscopic (ICD-10-PCS; 2024-12-03 16:48)
PROC: 0DB68ZX Excision of Stomach, Via Natural or Artificial Opening Endoscopic, Diagnostic (ICD-10-PCS; 2024-12-03 16:48)
PROC: 0DTF0ZZ Resection of Right Large Intestine, Open Approach (ICD-10-PCS; 2024-12-06)
DX: C18.2 Malignant neoplasm of ascending colon (principal); D62 Acute posthemorrhagic anemia; D68.32 Hemorrhagic disorder due to extrinsic circulating anticoagulants; K92.2 Gastrointestinal hemorrhage, unspecified; I69.354 Hemiplegia and hemiparesis following cerebral infarction affecting left non-dominant side; E44.0 Moderate protein-calorie malnutrition; K22.2 Esophageal obstruction; I12.9 Hypertensive chronic kidney disease with stage 1 through stage 4 chronic kidney disease, or unspecified chronic kidney disease; N18.31 Chronic kidney disease, stage 3a; D63.1 Anemia in chronic kidney disease; I25.10 Atherosclerotic heart disease of native coronary artery without angina pectoris; I48.0 Paroxysmal atrial fibrillation; K20.90 Esophagitis, unspecified without bleeding; K29.70 Gastritis, unspecified, without bleeding; E16.2 Hypoglycemia, unspecified; E78.2 Mixed hyperlipidemia; R00.0 Tachycardia, unspecified; K57.30 Diverticulosis of large intestine without perforation or abscess without bleeding; K64.8 Other hemorrhoids; Z68.21 Body mass index [BMI] 21.0-21.9, adult; Z79.01 Long term (current) use of anticoagulants; Z79.52 Long term (current) use of systemic steroids; Z85.828 Personal history of other malignant neoplasm of skin; Z95.5 Presence of coronary angioplasty implant and graft; Z87.891 Personal history of nicotine dependence
CPT/HCPCS: 36415; 43239; 43450; 45380; 45385; 71045; 74177; 80053; 82105; 82270; 82378; 82550; 82607; 82728; 82746; 82948; 83010; 83540; 83615; 83735; 84152; 84466; 84484; 85014; 85018; 85025; 85045; 85610; 85730; 86301; 86850; 86900; 86920; 88304; 88305; 88307; 88309; 88312; 88342; 93005; 99252; 99284; J0330; J0461; J0666; J0694; J1171; J1200; J1610; J1650; J1756; J2003; J2405; J2470; J2765; J2800; J2916; J3410; J7030; J7050; P9016; P9017; Q9967

== ENCOUNTER 2024-12-16 10:39 | Inpatient (IN) | payer MEDICARE, BC ==
[~2024-12-16] VITALS: Ht 182.9 cm; Wt 67.6 kg
[~2024-12-16 10:39] MED LIST changes: +ATORVASTATIN CA80 MG PO; +BENZONATATE200 MG PO; +ENOXAPARIN60 MG/0.6 SQ; +HYDROCODON-ACE1 EAC9 PO; +LISINOPRIL2.5 MG PO; +LOPRESSOR25 MG PO; +METHOCARBAMOL500 MG PO; +Warfarin Sod PO
[2024-12-16] MEDS: ONDANSETRON HCL INJ 2MG/ML 2ML 2 MG/ML VIAL IV STA (11:48)
[2024-12-16] MEDS: Morphine 4mg INJECTION 4 MG/ML INJ IV STA (11:48)
[2024-12-16 12:17] LABS: BASOPHILS % 0.5 % (0.0-1.0); EOSINOPHILS % 0.6 % (0.0-6.0); LYMPHOCYTES % 7.9 % (18.0-39.1); MONOCYTES % 8.3 % (4.4-11.3); NEUTROPHILS % 81.8 % (38.7-80.0); RED CELL DISTRIBUTION WIDTH 16.4 % (11.7-14.4)
[2024-12-16 12:34] LABS: LEUKOCYTE ESTERASE ,URINE NEGATIVE (NEGATIVE); PROTEIN,URINE DIPSTICK NEGATIVE (NEGATIVE); URINE UROBILINOGEN 0.2 mg/dL (0.2 - 1)
[2024-12-16 12:35] LABS: INR 1.5
[2024-12-16 12:37] LABS: EST GLOMERULAR FILTRATION RATE 70.0 ML/MIN (>=60)
[2024-12-16 12:46] LABS: EPITHELIAL CELLS,URINE RARE /LPF
[2024-12-16] MEDS: KETOROLAC TROMETHAMINE 30 MG/ML VIAL IV STA (14:07)
[2024-12-16 16:06] VITALS: PULSE 76; RESP 18
[2024-12-16] MEDS: Morphine 4mg INJECTION 4 MG/ML INJ IV PRN (16:06)
[2024-12-16] MEDS: SODIUM CHLORIDE 0.9% 1000ML 1,000 ML IV ONE (16:06)
[2024-12-16] MEDS: ONDANSETRON HCL INJ 2MG/ML 2ML 2 MG/ML VIAL IV PRN (16:06)
[2024-12-16 16:17] VITALS: BP 152/67; PULSE 70; RESP 19; TEMP 98.1; O2SAT 100
[2024-12-16 16:52] VITALS: BP 152/67; PULSE 70; RESP 19; TEMP 98.1; O2SAT 100
[2024-12-16] MEDS: BACLOFEN 10 MG TAB PO SCH (17:27)
[2024-12-16] MEDS ORDERED: ALBUTEROL 90 MCG/ACT INHALER INH PRN (17:45)
[2024-12-16] MEDS: WARFARIN SOD 3 MG TAB PO SCH (18:51)
[2024-12-16] MEDS: ENOXAPARIN SOD INJ 60 MG/0.6 ML SYR SC SCH (18:52)
[2024-12-16 20:00] VITALS: BP 154/75; PULSE 74; RESP 20; TEMP 98.2; O2SAT 100
[2024-12-16] MEDS: MELATONIN 3 MG TAB PO SCH (20:04)
[2024-12-16] MEDS: ATORVASTATIN 20 MG TAB PO SCH (20:05)
[2024-12-16 21:00] VITALS: BP 154/75; PULSE 74; RESP 20; TEMP 98.2; O2SAT 100
[2024-12-17] VITALS: BP 122/58; PULSE 77; RESP 17; TEMP 98.9; O2SAT 95
[2024-12-17 04:00] VITALS: BP 117/64; PULSE 74; RESP 18; TEMP 98.6; O2SAT 93
[2024-12-17 05:58] LABS: BASOPHILS % 0.3 % (0.0-1.0); EOSINOPHILS % 0.0 % (0.0-6.0); LYMPHOCYTES % 5.4 % (18.0-39.1); MONOCYTES % 10.5 % (4.4-11.3); NEUTROPHILS % 82.9 % (38.7-80.0); RED CELL DISTRIBUTION WIDTH 16.2 % (11.7-14.4)
[2024-12-17 06:16] LABS: INR 1.84
[2024-12-17 06:22] LABS: EST GLOMERULAR FILTRATION RATE 72.0 ML/MIN (>=60)
[2024-12-17] MEDS: CITALOPRAM HYDROBROMIDE 20 MG TAB PO SCH (08:51)
[2024-12-17] MEDS: METOPROLOL SUCCINATE 25 MG TAB XL PO SCH (08:52)
[2024-12-17 08:59] VITALS: BP 135/64; PULSE 79; RESP 19; TEMP 100.2; O2SAT 98
[2024-12-17] MEDS: LISINOPRIL 2.5 MG TAB PO SCH (09:12)
[2024-12-17] MEDS: SODIUM CHLORIDE 0.9% 250ML 250 ML IV ONE (09:51)
[2024-12-17] MEDS ORDERED: IOPAMIDOL 370 MG/ML 100 ML INFUS..BTL INJ ONE (10:10)
[2024-12-17] MEDS ORDERED: SODIUM CHLORIDE 0.9% 100 ML ONE (10:10)
[2024-12-17] MEDS ORDERED: HYDROCODONE/APAP 5MG-325MG TAB PO PRN (12:00)
[2024-12-17 16:45] VITALS: BP 123/70; PULSE 78; RESP 19; TEMP 99.7; O2SAT 95
[2024-12-17 20:00] VITALS: BP 148/72; PULSE 72; RESP 16; TEMP 97.9; O2SAT 96
[2024-12-17] MEDS ORDERED: POLYETHYLENE GLYCOL 3350 17 GM PACK PO PRN (23:15)
[2024-12-18] VITALS: BP 127/57; PULSE 67; RESP 18; TEMP 98.4; O2SAT 93
[2024-12-18 03:29] LABS: % IRON SATURATION 9 % (15-50)
[2024-12-18 05:51] VITALS: BP 110/50; PULSE 63; RESP 19; TEMP 97.7; O2SAT 100
[2024-12-18 06:52] LABS: BASOPHILS % 0.2 % (0.0-1.0); EOSINOPHILS % 0.0 % (0.0-6.0); LYMPHOCYTES % 6.7 % (18.0-39.1); MONOCYTES % 11.9 % (4.4-11.3); NEUTROPHILS % 80.5 % (38.7-80.0); RED CELL DISTRIBUTION WIDTH 17.0 % (11.7-14.4)
[2024-12-18 07:18] LABS: EST GLOMERULAR FILTRATION RATE 90.0 ML/MIN (>=60)
[2024-12-18 08:27] VITALS: BP 111/54; PULSE 69; RESP 18; TEMP 98.5; O2SAT 99
[2024-12-18] MEDS: PANTOPRAZOLE SOD 40 MG TABEC PO SCH (08:57)
[2024-12-18] MEDS: DOCUSATE SODIUM 100 MG CAP PO SCH (08:57)
[2024-12-18] MEDS: SENNOSIDES 8.6 MG TAB PO SCH (08:58)
[2024-12-18 12:05] VITALS: BP 111/52; PULSE 68; RESP 17; TEMP 98.5; O2SAT 98
[2024-12-18 16:43] VITALS: BP 129/62; PULSE 79; RESP 19; TEMP 97.4; O2SAT 100
[2024-12-18] MEDS: SODIUM FERRIC GLUCONATE COMPLX 125 MG in SODIUM CHLORIDE 0.9% 100 ML IV SCH (17:57)
[2024-12-18 20:00] VITALS: BP 138/62; PULSE 75; RESP 16; TEMP 97.7; O2SAT 100
[2024-12-18] MEDS: CYANOCOBALAMIN INJ 1,000 MCG/ML VIAL IM ONE (23:20)
[2024-12-19] VITALS (13 sets, daily range): BP systolic 106–135; BP diastolic 48–71; PULSE 68–78; RESP 16–19; TEMP 97.8–99.5; O2SAT 95–100
[2024-12-19 06:42] LABS: BASOPHILS % 0.2 % (0.0-1.0); EOSINOPHILS % 0.2 % (0.0-6.0); LYMPHOCYTES % 5.5 % (18.0-39.1); MONOCYTES % 13.0 % (4.4-11.3); NEUTROPHILS % 80.0 % (38.7-80.0); RED CELL DISTRIBUTION WIDTH 16.6 % (11.7-14.4)
[2024-12-19 07:02] LABS: INR 2.96
[2024-12-19 07:07] LABS: EST GLOMERULAR FILTRATION RATE 91.0 ML/MIN (>=60)
[2024-12-19] MEDS: CYANOCOBALAMIN INJ 1,000 MCG/ML VIAL IM SCH (10:07)
[2024-12-19] MEDS: HYDROCODONE/APAP 7.5MG-325MG 1 EA TAB PO PRN (11:26)
[2024-12-20] VITALS (15 sets, daily range): BP systolic 120–139; BP diastolic 42–69; PULSE 62–79; RESP 16–19; TEMP 97.6–99.5; O2SAT 95–100
[2024-12-20 05:48] LABS: BASOPHILS % 0.1 % (0.0-1.0); EOSINOPHILS % 0.9 % (0.0-6.0); LYMPHOCYTES % 7.1 % (18.0-39.1); MONOCYTES % 13.3 % (4.4-11.3); NEUTROPHILS % 77.2 % (38.7-80.0); RED CELL DISTRIBUTION WIDTH 16.0 % (11.7-14.4)
[2024-12-20 05:57] LABS: INR 1.8
[2024-12-20 06:24] LABS: EST GLOMERULAR FILTRATION RATE 92.0 ML/MIN (>=60)
[2024-12-20] MEDS: SODIUM CHLORIDE 0.9% 250ML 250 ML ONE (09:26)
[2024-12-20] MEDS: HYDROCODONE/APAP 10MG-325MG TAB PO PRN (13:50)
[2024-12-20] MEDS: SODIUM CHLORIDE 0.9% 250ML 250 ML IV ONE (18:20)
[2024-12-21] VITALS (9 sets, daily range): BP systolic 114–137; BP diastolic 41–72; PULSE 64–88; RESP 18–19; TEMP 97.5–98.7; O2SAT 96–99
[2024-12-21 07:34] LABS: BASOPHILS % 0.3 % (0.0-1.0); EOSINOPHILS % 1.9 % (0.0-6.0); LYMPHOCYTES % 8.5 % (18.0-39.1); MONOCYTES % 12.9 % (4.4-11.3); NEUTROPHILS % 74.9 % (38.7-80.0); RED CELL DISTRIBUTION WIDTH 15.3 % (11.7-14.4)
[2024-12-21 07:45] LABS: EST GLOMERULAR FILTRATION RATE 93.0 ML/MIN (>=60)
[2024-12-21 08:09] LABS: INR 1.74
[2024-12-21] MEDS: IRON-VITAMIN-MINERAL CAPSULE PO SCH (08:45)
[2024-12-21 13:33] LABS: % IRON SATURATION 21 % (15-50); LACTATE DEHYDROGENASE 652 IU/L (125-220)
[2024-12-21] MEDS: BISACODYL 10 MG SUPP PR PRN (15:01)
[2024-12-21] MEDS: PHYTONADIONE 5 MG TAB PO ONE (16:52)
[2024-12-22] VITALS (10 sets, daily range): BP systolic 112–138; BP diastolic 59–76; PULSE 62–78; RESP 18–20; TEMP 97.6–98.1; O2SAT 95–100
[2024-12-22 06:22] LABS: BASOPHILS % 0.5 % (0.0-1.0); EOSINOPHILS % 1.8 % (0.0-6.0); LYMPHOCYTES % 8.2 % (18.0-39.1); MONOCYTES % 11.3 % (4.4-11.3); NEUTROPHILS % 75.8 % (38.7-80.0); RED CELL DISTRIBUTION WIDTH 15.4 % (11.7-14.4)
[2024-12-22 06:24] LABS: INR 1.21
[2024-12-22 06:49] LABS: EST GLOMERULAR FILTRATION RATE 95.0 ML/MIN (>=60)
[2024-12-22] MEDS: BENZONATATE 100 MG CAP PO PRN (17:45)
[2024-12-23] VITALS (10 sets, daily range): BP systolic 121–133; BP diastolic 62–74; PULSE 56–84; RESP 17–20; TEMP 97.7–99.5; O2SAT 96–100
[2024-12-23 06:46] LABS: BASOPHILS % 0.5 % (0.0-1.0); EOSINOPHILS % 2.3 % (0.0-6.0); LYMPHOCYTES % 8.6 % (18.0-39.1); MONOCYTES % 9.3 % (4.4-11.3); NEUTROPHILS % 75.5 % (38.7-80.0); RED CELL DISTRIBUTION WIDTH 15.5 % (11.7-14.4)
[2024-12-23 07:21] LABS: EST GLOMERULAR FILTRATION RATE 94.0 ML/MIN (>=60)
[2024-12-23 11:27] LABS: INR 1.09
[2024-12-24 06:33] LABS: BASOPHILS % 0.5 % (0.0-1.0); EOSINOPHILS % 1.8 % (0.0-6.0); LYMPHOCYTES % 8.2 % (18.0-39.1); MONOCYTES % 8.1 % (4.4-11.3); NEUTROPHILS % 78.9 % (38.7-80.0); RED CELL DISTRIBUTION WIDTH 15.6 % (11.7-14.4)
[2024-12-24 06:49] LABS: INR 1.05
[2024-12-24 06:59] LABS: EST GLOMERULAR FILTRATION RATE 88.0 ML/MIN (>=60)
[2024-12-24 07:14] LABS: FOLATE (REF LAB) 14.9 ng/mL (>3.0)
[2024-12-24 10:20] VITALS: BP 119/47; PULSE 63; RESP 20; TEMP 97.8; O2SAT 100
[2024-12-24] MEDS ORDERED: SIMETHICONE 80 MG CHEW PO PRN (10:45)
[2024-12-24] MEDS: BISACODYL 10 MG SUPP PR ONE (11:56)
[2024-12-24 12:22] LABS: HAPTOGLOBIN 405.0 mg/dL (34-355)
[2024-12-24] MEDS ORDERED: SIMETHICONE80 MG PO (14:11)
[2024-12-24] MEDS ORDERED: FEROSUL325 MG PO (14:11)
[2024-12-24] MEDS ORDERED: BACLOFEN10 MG PO (14:11)
[2024-12-24 14:38] VITALS: BP 115/58; PULSE 95; RESP 20; TEMP 97.4; O2SAT 100
== END 2024-12-24 16:20 | disposition home or self-care (01) | DRG 813 ==
LOC: ER 10:45 → ERHOLD 14:50 → MED/SURG3 16:17 → OBSVTOIN 12-17 11:28
PROVIDERS: ADMIT Internal Medicine; ATTEND Internal Medicine
PROC: 30233N1 Transfusion of Nonautologous Red Blood Cells into Peripheral Vein, Percutaneous Approach (ICD-10-PCS; principal; 2024-12-17)
PROC: 30233K1 Transfusion of Nonautologous Frozen Plasma into Peripheral Vein, Percutaneous Approach (ICD-10-PCS; 2024-12-19)
DX: D68.32 Hemorrhagic disorder due to extrinsic circulating anticoagulants (principal); D62 Acute posthemorrhagic anemia; C18.9 Malignant neoplasm of colon, unspecified; C77.2 Secondary and unspecified malignant neoplasm of intra-abdominal lymph nodes; I69.354 Hemiplegia and hemiparesis following cerebral infarction affecting left non-dominant side; D75.838 Other thrombocytosis; I12.9 Hypertensive chronic kidney disease with stage 1 through stage 4 chronic kidney disease, or unspecified chronic kidney disease; M79.81 Nontraumatic hematoma of soft tissue; I25.10 Atherosclerotic heart disease of native coronary artery without angina pectoris; E78.5 Hyperlipidemia, unspecified; D50.9 Iron deficiency anemia, unspecified; D51.9 Vitamin B12 deficiency anemia, unspecified; I48.0 Paroxysmal atrial fibrillation; N18.9 Chronic kidney disease, unspecified; I73.9 Peripheral vascular disease, unspecified; R53.81 Other malaise; Z79.01 Long term (current) use of anticoagulants; Z79.52 Long term (current) use of systemic steroids; Z95.5 Presence of coronary angioplasty implant and graft; Z85.828 Personal history of other malignant neoplasm of skin; Z90.49 Acquired absence of other specified parts of digestive tract
CPT/HCPCS: 36415; 70450; 71045; 74174; 74250; 80048; 80053; 81001; 82270; 82550; 82607; 82728; 82746; 82948; 83010; 83540; 83615; 83735; 84466; 84484; 85014; 85018; 85025; 85045; 85610; 85730; 86850; 86900; 86920; 93005; 93926; 93970; 93971; 94799; 99252; 99284; G0378; J1650; J1885; J2270; J2405; J2470; J2916; J3420; J7030; J7050; P9016; P9017; Q9967